=== PATIENT | male | born 1995 | race American Indian/Alaskan Native ===

== ENCOUNTER 2022-01-22 23:25 | Emergency (ER) | payer BC ==
[2022-01-23] MEDS ORDERED: IPRATROPIUM/ALBUTEROL SULFATE 3 ML AMPUL.NEB IH SCH (07:00)
[2022-01-23] MEDS ORDERED: predniSONE 20 MG TAB PO SCH (07:00)
[2022-01-23] MEDS ORDERED: BENZONATATE 100 MG CAP PO SCH (07:00)
--- NOTE | 2022-01-23 07:31 | Emergency Department Report ---
ED Asthma HPI - General Chief Complaint: Upper Respiratory Infection Stated Complaint: SOB Time Seen by Provider: 01/23/22 06:39 Source: patient Mode of arrival: Ambulatory Limitations: No Limitations - History of Present Illness Initial Comments: 26-year-old black male with a past medical history of asthma presents to the emergency department for evaluation of 3-day history of worsening cough, congestion, wheezing, and intermittent shortness of breath. He denies fever or chills. He states that he has been wheezing a lot but has ran out of his inh aler and albuterol nebulizer solution for his home machine. He denies chest pain, nausea, vomiting. MD Complaint: "asthma attack", shortness of breath, wheezing -: Gradual, days(s) (3) Asthma History: childhood onset Severity: moderate Context: recent URI, ran out of meds Associated Symptoms: productive cough. denies: fever, chest pain, hemoptysis, leg edema, syncope - Related Data Current Asthma Therapy: inhaled bronchodilator Previous Rx's Medication Instructions Recorded Last Taken Type ALBUTEROL NEB's [Proventil 0.083% 2.5 mg IH TID PRN #10 neb 01/23/22 Unknown Rx NEBS] Albuterol Mdi (or & Nicu Only) 2 puff IH QID PRN #8.5 gram 01/23/22 Unknown Rx [ProAir HFA Inhaler] Benzonatate [Tessalon Perles] 100 mg PO Q8HR PRN #30 cap 01/23/22 Unknown Rx Brompheniramine/Pseudoephed/Dm 10 ml PO TID PRN #120 ml 01/23/22 Unknown Rx [Bromfed Dm Cough Syrup] Allergies Allergy/AdvReac Type Severity Reaction Status Date / Time No Known Allergies Allergy Unverified 01/23/22 07:06 ED Review of Systems ROS: Stated complaint: SOB Other details as noted in HPI Constitutional: denies: chills, fever Respiratory: cough, shortness of breath, wheezing. denies: SOB with exertion, SOB at rest Cardiovascular: denies: chest pain, palpitations, edema, syncope, paroxysmal nocturnal dyspnea Gastrointestinal: denies: nausea, vomiting Musculoskeletal: denies: back pain Neurological: denies: headache, weakness ED Past Medical Hx - Medications Home Medications: Home Medications Medication Instructions Recorded Confirmed Last Taken Type ALBUTEROL NEB's [Proventil 0.083% 2.5 mg IH TID PRN #10 neb 01/23/22 Unknown Rx NEBS] Albuterol Mdi (or & Nicu Only) 2 puff IH QID PRN #8.5 gram 01/23/22 Unknown Rx [ProAir HFA Inhaler] Benzonatate [Tessalon Perles] 100 mg PO Q8HR PRN #30 cap 01/23/22 Unknown Rx Brompheniramine/Pseudoephed/Dm 10 ml PO TID PRN #120 ml 01/23/22 Unknown Rx [Bromfed Dm Cough Syrup] ED Physical Exam - General Limitations: No Limitations General appearance: alert, in no apparent distress - Head Head exam: Present: atraumatic, normocephalic - Eye Eye exam: Present: normal appearance. Absent: conjunctival injection - Neck Neck exam: Present: normal inspection - Respiratory Respiratory exam: Present: wheezes. Absent: respiratory distress, rales, rhonchi, stridor, chest wall tenderness, accessory muscle use - Cardiovascular Cardiovascular Exam: Present: regular rate, normal heart sounds - GI/Abdominal GI/Abdominal exam: Present: soft, normal bowel sounds. Absent: distended, tenderness, guarding, rebound, rigid - Extremities Exam Extremities exam: Present: normal inspection - Back Exam Back exam: Present: normal inspection. Absent: CVA tenderness (R), CVA tenderness (L) - Neurological Exam Neurological exam: Present: alert, oriented X3 - Psychiatric Psychiatric exam: Present: normal affect, normal mood - Skin Skin exam: Present: warm, dry, intact, normal color ED Course Vital Signs 01/23/22 01/23/22 00:51 08:21 Temperature 98.3 F Pulse Rate 82 84 Respiratory 18 20 Rate Blood Pressure 120/72 119/76 O2 Sat by Pulse 98 98 Oximetry ED Medical Decision Making - Medical Decision Making 26-year-old black male with a past medical history of asthma presents to the emergency department for evaluation of 3-day history of worsening cough, congestion, wheezing, and intermittent shortness of breath. He denies fever or chills. He states that he has been wheezing a lot but has ran out of his inhaler and albuterol nebulizer solution for his home machine. He denies chest pain, nausea, vomiting. Wheezing resolved, and sob and cough improved after medications. Patient will be treated for asthma exacerbation with steroids, cough medication and albuterol inhaler. He was advised to take medications as prescribed and follow up with pcp for further evaluation and management. He verbalized understanding of and agreement with plan of care. Critical care attestation.: If time is entered above; I have spent that time in minutes in the direct care of this critically ill patient, excluding procedure time. ED Disposition Clinical Impression: Asthma exacerbation Qualifiers: Asthma severity: mild Asthma persistence: intermittent Qualified Code(s): J45.21 - Mild intermittent asthma with (acute) exacerbation Disposition: 01 HOME / SELF CARE / HOMELESS Is pt being admited?: No Does the pt Need Aspirin: No Condition: Stable Instructions: Cough, Adult, [id number], Asthma, Adult, [id number], Asthma Attack Prevention, Adult Additional Instructions: Take medications as prescribed. Follow-up with primary care provider for further evaluation and management of asthma. Return to the emergency department for any concerning symptoms. Prescriptions: Brompheniramine/Pseudoephed/Dm [Bromfed Dm Cough Syrup] 10 ml PO TID PRN #120 ml PRN Reason: Cough Albuterol Mdi (or & Nicu Only) [ProAir HFA Inhaler] 2 puff IH QID PRN #8.5 gram PRN Reason: Shortness Of Breath ALBUTEROL NEB's [Proventil 0.083% NEBS] 2.5 mg IH TID PRN #10 neb PRN Reason: Wheezing Benzonatate [Tessalon Perles] 100 mg PO Q8HR PRN #30 cap PRN Reason: Cough Referrals: MEGAN SAM MD [Primary Care Provider] - 3-5 Days Forms: Work/School Release Form(ED)
[2022-01-23 08:27] VITALS: BP 119/76
== END 2022-01-23 08:26 | disposition home or self-care (01) ==
LOC: ED 23:25
DX: J45.901 Unspecified asthma with (acute) exacerbation (principal); Z79.899 Other long term (current) drug therapy
CPT/HCPCS: 94640; 99282

== ENCOUNTER 2022-05-16 12:45 | Emergency (ER) | payer SELFPAY ==
[2022-05-16] MEDS ORDERED: predniSONE 20 MG TAB PO ONE (13:38)
[2022-05-16] MEDS ORDERED: ALBUTEROL 2.5 MG/3 ML NEBU IH ONE (13:38)
[2022-05-16 13:39] VITALS: BP 123/81
--- NOTE | 2022-05-16 13:53 | Emergency Department Report ---
ED General Adult HPI - General Chief complaint: Dyspnea/Respdistress Stated complaint: ASTHMA ATTACK Time Seen by Provider: 05/16/22 13:38 Source: patient Mode of arrival: Ambulatory Limitations: No Limitations - History of Present Illness Initial comments: pt is a 26 y/o male with hx of asthma who presents for sob wheezing x 3 days, pt states out of albuterol inhaler, pt denies fever or chills, cough is productive clear , there is no stridor , wheezing is exacerbated by activity , symptoms are improved by nothing, , symptoms are exacerbated by environmental exposure. Pt rates symptoms as 5/10 for his normal asthma exacerbation - Related Data Previous Rx's Medication Instructions Recorded Last Taken Type ALBUTEROL NEB's [Proventil 0.083% 2.5 mg IH TID PRN #10 neb 01/23/22 Unknown Rx NEBS] Albuterol Mdi (or & Nicu Only) 2 puff IH QID PRN #8.5 gram 01/23/22 Unknown Rx [ProAir HFA Inhaler] Benzonatate [Tessalon Perles] 100 mg PO Q8HR PRN #30 cap 01/23/22 Unknown Rx Brompheniramine/Pseudoephed/Dm 10 ml PO TID PRN #120 ml 01/23/22 Unknown Rx [Bromfed Dm Cough Syrup] Albuterol Mdi (or & Nicu Only) 2 puff IH QID PRN #8.5 gram 05/16/22 Unknown Rx [ProAir HFA Inhaler] predniSONE [Deltasone] 40 mg PO QDAY 5 Days #10 tab 05/16/22 Unknown Rx Allergies Allergy/AdvReac Type Severity Reaction Status Date / Time No Known Allergies Allergy Unverified 01/23/22 07:06 ED Review of Systems ROS: Stated complaint: ASTHMA ATTACK Other details as noted in HPI Constitutional: no symptoms reported Eyes: denies: eye pain, eye discharge, vision change ENT: congestion Respiratory: cough, shortness of breath, wheezing Cardiovascular: denies: chest pain, palpitations Endocrine: no symptoms reported Gastrointestinal: denies: abdominal pain, nausea, vomiting, diarrhea Genitourinary: denies: urgency, dysuria Musculoskeletal: denies: back pain, joint swelling, arthralgia Skin: denies: rash, lesions Neurological: denies: headache, weakness, paresthesias, vertigo Psychiatric: denies: anxiety, depression Hematological/Lymphatic: denies: easy bleeding, easy bruising ED Past Medical Hx - Past Medical History Hx Asthma: Yes - Social History Smoking Status: Never Smoker - Medications Home Medications: Home Medications Medication Instructions Recorded Confirmed Last Taken Type ALBUTEROL NEB's [Proventil 0.083% 2.5 mg IH TID PRN #10 neb 01/23/22 Unknown Rx NEBS] Albuterol Mdi (or & Nicu Only) 2 puff IH QID PRN #8.5 gram 01/23/22 Unknown Rx [ProAir HFA Inhaler] Benzonatate [Tessalon Perles] 100 mg PO Q8HR PRN #30 cap 01/23/22 Unknown Rx Brompheniramine/Pseudoephed/Dm 10 ml PO TID PRN #120 ml 01/23/22 Unknown Rx [Bromfed Dm Cough Syrup] Albuterol Mdi (or & Nicu Only) 2 puff IH QID PRN #8.5 gram 05/16/22 Unknown Rx [ProAir HFA Inhaler] predniSONE [Deltasone] 40 mg PO QDAY 5 Days #10 tab 05/16/22 Unknown Rx ED Physical Exam - General Limitations: No Limitations General appearance: alert, in no apparent distress - Head Head exam: Present: normocephalic, normal inspection - Eye Eye exam: Present: EOMI Pupils: Present: normal accommodation - ENT ENT exam: Present: normal orophraynx, mucous membranes moist - Neck Neck exam: Present: normal inspection, full ROM. Absent: tenderness, lymphad enopathy - Respiratory Respiratory exam: Present: wheezes. Absent: rales, rhonchi, stridor, chest wall tenderness - Expanded Respiratory Exam Expanded Location: Wheezes: Right, Left (anterior ) - Cardiovascular Cardiovascular Exam: Present: regular rate, normal rhythm, normal heart sounds. Absent: systolic murmur, diastolic murmur, rubs, gallop - GI/Abdominal GI/Abdominal exam: Present: soft. Absent: distended, tenderness - Rectal Rectal exam: Present: deferred - Extremities Exam Extremities exam: Present: normal inspection, full ROM, normal capillary refill - Back Exam Back exam: Present: normal inspection, full ROM. Absent: CVA tenderness (R), CVA tenderness (L) - Neurological Exam Neurological exam: Present: alert, oriented X3, CN II-XII intact, normal gait - Psychiatric Psychiatric exam: Present: normal affect, normal mood - Skin Skin exam: Present: warm, dry, intact, normal color. Absent: rash ED Course Vital Signs 05/16/22 13:37 Temperature 98.9 F Pulse Rate 105 H Respiratory 20 Rate Blood Pressure 123/81 O2 Sat by Pulse 97 Oximetry ED Medical Decision Making - Medical Decision Making Wheezing is improved with medications given in ED. Patient has ambulated from the bathroom and back to room without increased shortness of breath. Patient states breathing is now at baseline. Patient will be DC'd to home we will refill medications as requested. Patient verbalized agreement understanding with discharge plan. Patient DC'd home in stable condition at this time Critical care attestation.: If time is entered above; I have spent that time in minutes in the direct care of this critically ill patient, excluding procedure time. ED Disposition Clinical Impression: Asthma Qualifiers: Asthma severity: moderate Asthma persistence: unspecified Asthma complication type: unspecified Qualified Code(s): J45.909 - Unspecified asthma, uncomplicated Disposition: 01 HOME / SELF CARE / HOMELESS Is pt being admited?: No Does the pt Need Aspirin: No Condition: Stable Instructions: Asthma (ED), Asthma Attack Prevention, Adult, Asthma, Adult Additional Instructions: Take medication as prescribed, follow-up with your doctor in 2 to 3 days. Return to emergency department should symptoms worsen Prescriptions: predniSONE [Deltasone] 40 mg PO QDAY 5 Days #10 tab Albuterol Mdi (or & Nicu Only) [ProAir HFA Inhaler] 2 puff IH QID PRN #8.5 gram PRN Reason: Shortness Of Breath Referrals: CECELIA ROBERSON MD [Staff Physician] - 3-5 Days Forms: Work/School Release Form(ED) Time of Disposition: 14:36
== END 2022-05-16 14:50 | disposition home or self-care (01) ==
LOC: ED 12:45
DX: J45.909 Unspecified asthma, uncomplicated (principal)
CPT/HCPCS: 99282